=== PATIENT | female | born 1985 | race Caucasian/White ===

== ENCOUNTER 2019-01-06 09:44 | Emergency (ER) | payer SELFPAY ==
[~2019-01-06] VITALS: Ht 165.1 cm; Wt 66.4 kg
[2019-01-06 09:51] VITALS: BP 128/87; PULSE 120; RESP 18; Ht 165.1 cm; Wt 66.4 kg
[2019-01-06] MEDS ORDERED: CEFTRIAXONE 250 MG INJ IM ONE (11:00)
[2019-01-06] MEDS ORDERED: LIDOCAINE 1% (MPF) 5 ML VIAL INJ ONE (11:00)
[2019-01-06] MEDS ORDERED: AZITHROMYCIN 500 MG TAB PO ONE (11:00)
== END 2019-01-06 12:26 | disposition home or self-care (01) ==
LOC: FTE 09:44
DX: Z01.812 Encounter for preprocedural laboratory examination (principal)
CPT/HCPCS: 81003; 81025; 87591; 96372; 99284; J0696